=== PATIENT | male | born 1950 | race Caucasian/White ===

== ENCOUNTER → 2016-09-09 | Outpatient (CLI) | payer MEDICARE, BC ==
--- NOTE | 2016-09-09 18:40 | RADIOLOGY REPORT PS360 ---
SKULL (AP LAT) UP TO 3 VIEWS ORDERING PHYSICIAN : Smita Esparza APRN PATIENT AGE: 65 years GENDER: Male INDICATION: HEAD INJURY Heavy cast rolled this fell on top of head 4 days ago broke this. Head pain. Swelling. Swelling behind right ear. No LOC. TECHNIQUE: 5 view skull series COMPARISON: None FINDINGS No no skull fracture evident. Multiple vascular channels account for the lines here towards the skull bilaterally. Would also Question of vague benign hemangioma of bone~2 cm at the right skull parietal bone. Not of significance or concern Visualized paranasal sinuses, and sella unremarkable. Pineal calcified and midline. IMPRESSION: . No skull fracture evident . If headache or head Pain should persist consider CT follow-up
== END ==
LOC: RAD 11:27
DX: S09.90XA Unspecified injury of head, initial encounter (principal)

== ENCOUNTER → 2017-06-03 | Outpatient (CLI) | payer MEDICARE, BC ==
--- NOTE | 2017-06-05 06:53 | RADIOLOGY REPORT PS360 ---
CT ABD PELVIS W/O CONTRAST CLINICAL INDICATION: Periumbilical pain, ventral abdominal hernia PERIUMBILICAL PAIN, VENTRAL HERNIS ORDERING PHYSICIAN: Bishnu Tello MD PATIENT AGE: 66 years COMPARISON: None TECHNIQUE: Axial images obtained with sagittal and coronal reformats. PROCEDURE: Oral Contrast: Redicat IV Contrast: None . FINDINGS: No acute finding in the lower chest. The liver, gallbladder, spleen, adrenal glands, and pancreas have an unremarkable unenhanced CT appearance. There has been prior gastric bypass with gastrojejunostomy. No renal calculi, renal mass, or hydronephrosis. No ureteral calculi. Unremarkable urinary bladder. No evidence of intestinal obstruction or free air. Unremarkable appendix. Scattered diverticula within the colon but no evidence of diverticulitis. There is a small supraumbilical hernia containing fat. The hernia orifice measures approximately 2 cm. A small hyperdensity is present in the intra-abdominal wall along the superior aspect of the hernia nonspecific. The hernia does not contain bowel. There is a tiny umbilical hernia containing fat. No acute bony findings. IMPRESSION: 1. No acute intra-abdominal or pelvic findings. 2. Small ventral supraumbilical hernia containing fat along with a tiny umbilical hernia containing fat
== END ==
LOC: RAD 10:18
DX: R10.33 Periumbilical pain (principal); K43.9 Ventral hernia without obstruction or gangrene

== ENCOUNTER 2017-06-27 17:25 | Emergency (ER) | payer MEDICARE, BC ==
[~2017-06-27] VITALS: Ht 180.3 cm; Wt 104.3 kg
--- OUTSIDE RECORDS SUMMARY | 2017-06-27 17:45 | External Medical Summary Rpt ---
Author Author [employer] Mas, LIBAN Mas Organization [employer] Address Unknown Phone Unavailable
--- OUTSIDE RECORDS SUMMARY | 2017-06-27 17:45 | External Medical Summary Rpt | CCD ---
Author Author , JAMILA LOUIE Address Unknown Phone [email or web address] Immunization Name Date Rout CVX Reac Dose Comm Prov Is Faci e tion ent ider Refu lity Give sed n Infl 10-0 Intr 135 0.5 Hist D049 No D049 uenz 2-20 amus mL oric 01 01 a, 17 cula al High r Info rmat Dose ion - Sour ce Unsp ecif ied
--- OUTSIDE RECORDS SUMMARY | 2017-06-27 17:45 | External Medical Summary Rpt | CCD ---
Author Author , JAMILA LOUIE Address Unknown Phone Purpose Continuity of Care Document - through 2016 Problems Code Diagnosis DOS Provider Status 786.05
--- OUTSIDE RECORDS SUMMARY | 2017-06-27 17:45 | External Medical Summary Rpt | CCD ---
Author Author [employer] Organization [employer] Address Unknown Phone Unavailable Purpose Continuity of Care Document - through 2016
--- OUTSIDE RECORDS SUMMARY | 2017-06-27 17:45 | External Medical Summary Rpt | CCD ---
Author Author , JAMILA LOUIE Address Unknown Phone [email or web address] Immunization Name Date Rout CVX Reac Dose Comm Prov Is Faci e tion ent ider Refu lity Give sed n Infl 10-0 Intr 135 0.5 Hist D049 No D049 uenz 2-20 amus mL oric 01 01 a, 17 cula al High r Info rmat Dose ion - Sour ce Unsp ecif ied
[2017-06-27] MEDS ORDERED: METOPROLOL SUCC50 M4 PO (17:49)
[2017-06-27] MEDS ORDERED: PRAVACHOL40 MG PO (17:50)
[2017-06-27] MEDS ORDERED: PULMICORT180 MCG/AC IH (17:51)
[2017-06-27] MEDS ORDERED: LISINOPRIL20 MG PO (17:51)
[2017-06-27] MEDS ORDERED: MONTELUKAST SOD10 MG PO (17:51)
[2017-06-27] MEDS ORDERED: TRIAMCINOL80 GM/TUBE TP (17:53)
[2017-06-27] MEDS ORDERED: MULTIVITAMIN1 SGL PO (17:55)
[2017-06-27] MEDS ORDERED: VITAMIN D31000 IU PO (17:56)
[2017-06-27] MEDS ORDERED: VITAMIN C500 M1 PO (17:56)
[2017-06-27] MEDS ORDERED: CYANOCOBAL1000 MCG/M IM (17:57)
--- NOTE | 2017-06-27 18:33 | Emergency Room Report ---
History of Present Illness Time Seen by 492 Presenting Problem in Triage Pt arrived:Walked Presenting Problem: states that he is not rembering things. Made oil change appt. today and didn't remmbering do it and states that he states he keeps asking where they are going after she just told him that they are going to the ER just states "he is not himself and something is wrong". 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 N Clinical Suspician of Infection? N Mental Status: 3 - Acutely Altered Sepsis Risk:Low Sepsis Risk Have you (or family members/close friends) recently traveled outside the [place]? N If Yes, where/when: Have you had exposure to infectious disease within the past month? N TB? Other? Specify: Source patient, RN notes reviewed Exam Limitations no limitations Comment The of this man is concerned that he is not remembering things over the past day or two like he normally does. He has a history of DM and HLD and takes a statin drug and uses Co Q 10 but started taking it for muscle cramps but now he is having trouble remembering thing.s Cardiac Chest Pain Chest pain indicative of cardiac No ALLERGIES Coded Allergies: No Known Allergies (06/03/17) Home Medications Reported Medications Metoprolol Succinate (Metoprolol Succinate XL) 50 MG PO DAILY #30 Pravastatin Sodium (Pravachol) 40 MG PO QHS #90 Lisinopril 20 MG PO DAILY #90 Montelukast Sodium 10 MG PO DAILY #90 Budesonide (Pulmicort 180MCG Flexhaler) 1 PUFF IH BID #1 TRIAMCINOLONE ACET 0.1% (Triamcinolone Acetonide) 1 GUILLERMO TP PRN PRN ECZEMA #80 MULTIVITAMIN (Multivitamins) 1 SGL PO DAILY Ascorbic Acid (Vitamin C) 500 MG PO BID CHOLECALCIFEROL (VITAMIN D3) (Vitamin D) 400 IUNITS PO DAILY VITAMIN B12 (Cyanocobalamin Injection) 500 MCG IM MONTHLY History Medical History General CAD? No Angina: No [place]: No Hypertension? Yes Hyperlipidemia? Yes CHF? No DVT? No PE? No COPD? No Asthma? Yes Anemia? No GERD? No Gastric ulcers? Yes GI Bleed? No Hernia? No Thyroid Problems? No Hypothyroidism? No CVA? No Seizures? No Diabetes? No Insulin Dependent: No Renal Insuffiency? No End Stage Renal Disease? No UTI? No Stones? No BPH? No GB Disease: No Nephritic Syndrome? No Asplenia? No Hepatitis? No Sickle Cell Disease? No Arthritis? No Migraines? No Cataracts? No Glaucoma? No MRSA? No HIV? No TB? No Anxiety? No Depression? No Cancer? No Immunization Hx DT/Tetanus 1-4 Years Ago Surgical Hx Previous Surgery?Y GASTRIC BYPASS- 09 T&A - 1966 LASIX SURGERY - 87 Social History Smoking Hx Smoker: Former Smoker Tobacco: No Type Cigarettes Are you/the child exposed to second-hand smoke: No Alcohol Alcohol: Yes Review of Systems All Other Systems Reviewed and Negative Constitutional see HPI Psychiatric/Neurological see HPI Physical Exam Vital Signs Vital Signs Date Time Temp Pulse Resp B/P Pulse O2 O2 Flow FiO2 Ox Delivery Rate 06/27 1902 98.2 63 18 149/77 98 06/27 1730 97.7 73 20 190/97 98 General Appearance normal appearance, WD/WN, no apparent distress Respiratory Status No: respiratory distress. Cardiovascular normal exam, regular rate/rhythm Neurologic no motor/sensory deficits, Mini-mental status exam reveals he could only remember 1 of 3 items after 5 minutes. Proverbs are mostly concrete but serial 7's are completely normal. Medical Decision Making LABS/Meds/Orders Pt receiving controlled substance in ED? No Results/Orders Laboratory Tests 06/27/171834: Aldolase Pending 06/27/171834: Sodium 139, Potassium 5.3 H, Chloride 108 H, Carbon Dioxide 26, BUN 24 H, Creatinine 2.0 H, Estimated Creat Clear 53, Estimated GFR (MDRD) 33, Glucose 122 H, Calcium 8.1 L, Total Bilirubin 0.3, AST 17, ALT 28, Alkaline Phosphatase 113, Creatine Kinase 100, CK-MB (CK-2) Rel Index 1.2, CK and CKMB Interp 1.2, Troponin I < 0.02, Total Protein 7.1, Albumin 3.7, Globulin 3.4 H, Albumin/Globulin Ratio 1.1, WBC 11.1 H, RBC 4.25 L, Hgb 13.1 L, Hct 39.1 L, MCV 91.9, RDW 13.3, Plt Count 332, MPV 7.9, Gran % 68.0, Gran # 7.6, Lymphocytes % 18.6, Monocytes % 7.7, Eosinophils % 5.0, Basophils % 0.7, Lymphocytes # 2.1, Monocytes # 0.9, Eosinophils # 0.6 H, Basophils # 0.1, PUBS MCHC 33.5, MCH 30.8 Current Medication Orders Sig/Min Start time Last Medication Dose Route Stop Time Status Admin Sodium Chloride 1,000 ML .STK-MED ONE 06/27 1852 DC IV Sodium Chloride 10 ML PRN PRN 06/27 1830 AC IV 06/28 1828 Sodium Chloride 1,000 ML .Q1H1M 06/27 1830 DC 06/27 IV 06/27 Sodium Chloride 10 ML PRN PRN 06/27 1830 AC IV 06/28 182 Orders Procedure Date/time Status DIET-NOTHING BY MOUTH 06/[address] HEAD W/O CONTRAST 06/[address] HEAD REQ 06/27 1829 Complete IV SALINE LOCK 06/27 1829 Active CBC WITH AUTO DIFF 06/27 1829 Complete CARDIAC ENZYMES 06/27 1829 Complete CHEM 12 PROFILE 06/27 1829 Complete ALDOLASE 06/27 1829 Active XRAY/CT/US XRAY/CT/US CT head CT interpretation by reviewed by me Time results known: 1929 CT Results normal/NAD Departure Departure Time of Disposition 1929 Disposition DC Home or Self Care(routine) Clinical Impression Primary Impression: Confusion Secondary Impressions: HLD (hyperlipidemia) Qualifiers: Hyperlipidemia type: unspecified Qualified Code: E78.5 - Hyperlipidemia, unspecified Hypertension Qualifiers: Hypertension type: essential hypertension Qualified Code: I10 - Essential (primary) hypertension Condition STABLE Referrals Elisha MCCORMACK,Bishnu (Family): 3 Days-Call Office Patient Instructions Chronic Renal Failure Additional Instructions Advised to increase his Co Q10 to 400 mg daily with his statin drug and to followup with a Neurologist for further evaluaiton Discharge Counseling Counseled pt/family regarding diagnosis, test results, home care, follow up needs ED Critical Care Critical Care No If Critical Care minutes are documented, the time involved in the performance of seperately reportable procedures was not counted toward critical care time documented. I directly delivered medical care to this critically ill and/or injured patient. Timely evaluation and treatment was necessary to address the significant organ system(s) dysfunction present in this patient. at 1934
[2017-06-27 18:49] LABS: HEMOGLOBIN 13.1 g/dL (14.1-18.0); LYMPH # 2.1 K/mm3 (0.7-4.5); LYMPH % 18.6 % (10-50)
[2017-06-27 19:09] LABS: BUN 24 mg/dL (7-18)
[2017-06-27 19:12] LABS: GFR (ESTIMATED) 33 ML/MIN (>60)
[2017-06-27 19:50] VITALS: BP 157/100
--- NOTE | 2017-06-27 21:47 | RADIOLOGY REPORT PS360 ---
CT HEAD W/O CONTRAST HISTORY: Confusion, altered mental status, altered level of consciousness, CONFUSION ORDERING PHYSICIAN: Shyann Ordoñez MD PATIENT AGE: 66 years COMPARISON: None TECHNIQUE: Axial images obtained without contrast. Brain and bone windows reviewed. FINDINGS: No midline shift, mass effect, intracranial hemorrhage, hydrocephalus, or extra-axial fluid collection is evident. There is mild generalized atrophy. The calvarium has an unremarkable appearance. No mastoid effusion. Air-fluid levels in the maxillary sinuses with mucosal thickening of the ethmoid sinuses. IMPRESSION: 1. No acute intracranial findings. 2. Sinusitis.
== END 2017-06-27 19:52 | disposition home or self-care (01) ==
LOC: ER 17:25
PROVIDERS: General Practice
DX: F44.89 Other dissociative and conversion disorders (principal); I10 Essential (primary) hypertension; E78.5 Hyperlipidemia, unspecified; E11.9 Type 2 diabetes mellitus without complications; J45.909 Unspecified asthma, uncomplicated; Z79.899 Other long term (current) drug therapy